=== PATIENT | female | born 2000 | race Caucasian/White ===

== ENCOUNTER 2019-06-24 20:09 | Emergency (ER) | payer MEDICAID ==
--- NOTE | 2019-06-24 21:31 | ER Document Report ---
HPI - HPI Time Seen by Provider: 06/24/19 20:37 Pain Level: 4 Notes: 19-year-old female patient presenting to the emergency department chief complaint of headache, throat pain and ear pain that started yesterday. Patient reports low-grade fever. Denies any cough or congestion. Denies any recent travel or exposure to any known COVID-19 patients. - CONSTITUTIONAL Constitutional: REPORTS: Fever, Chills - EENT EENT: REPORTS: Sore Throat, Ear Pain. DENIES: Eye problems - NEURO Neurology: REPORTS: Headache - REPRODUCTIVE Reproductive: DENIES: : Past Medical History - General Information source: Patient - Social History Smoking Status: Current Every Day Smoker Family History: Reviewed & Not Pertinent Patient has suicidal ideation: No Patient has homicidal ideation: No GI Medical History: Reports: Hx Gastroesophageal Reflux Disease Psychiatric Medical History: Reports: Hx Depression Past Surgical History: Reports: Hx Tonsillectomy Vertical Provider Document - CONSTITUTIONAL Notes: PHYSICAL EXAMINATION: GENERAL: Well-appearing, well-nourished and in no acute distress. HEAD: Atraumatic, normocephalic. EYES: Pupils equal round and reactive to light, extraocular movements intact, conjunctiva are normal. ENT: Nares patent, oropharynx slightly erythematous but without exudates. Moist mucous membranes. Bilateral TMs unremarkable NECK: Normal range of motion, supple without lymphadenopathy LUNGS: Breath sounds clear to auscultation bilaterally and equal. No wheezes rales or rhonchi. HEART: Regular rate and rhythm without murmurs ABDOMEN: Soft, nontender, nondistended abdomen. No guarding, no rebound. No masses appreciated. Female : deferred Musculoskeletal: Normal range of motion, no pitting or edema. No cyanosis. NEUROLOGICAL: Cranial nerves grossly intact. Normal speech, normal gait. Normal sensory, motor exams PSYCH: Normal mood, normal affect. SKIN: Warm, Dry, normal turgor, no rashes or lesions noted. Course - Re-evaluation Re-evalutation: Patient appears well, nontoxic, vital signs within normal limits. Work-up today has been unremarkable. No indication at this time for COVID-19 testing. Patient is in agreement with this plan. Patient will be discharged home. - Vital Signs Vital signs: Temp Pulse Resp BP Pulse Ox 98.6 F 96 15 109/61 95 06/24/19 20:24 06/24/19 20:24 06/24/19 20:24 06/24/19 20:24 06/24/19 20:24 Discharge - Discharge Clinical Impression: URI (upper respiratory infection) Qualifiers: URI type: unspecified URI Qualified Code(s): J06.9 - Acute upper respiratory infection, unspecified Condition: Stable Disposition: HOME, SELF-CARE Instructions: Upper Respiratory Illness ([facility])
[2019-06-24 21:56] VITALS: BP 105/57
== END 2019-06-24 21:56 | disposition home or self-care (01) ==
LOC: ER 20:09
DX: J06.9 Acute upper respiratory infection, unspecified (principal); R51 Headache; R50.9 Fever, unspecified; F17.200 Nicotine dependence, unspecified, uncomplicated
CPT/HCPCS: 87070; 87077; 87880; 99283

== ENCOUNTER 2019-07-10 22:08 | Inpatient (IN) | payer OTHER, MEDICAID ==
[2019-07-10 22:44] LABS: ABSOLUTE EOSINOPHILS # (AUTO) 0.1 10^3/uL (0.0-0.6); ABSOLUTE LYMPHOCYTES (AUTO) 2.1 10^3/uL (0.5-4.7); ABSOLUTE MONOCYTES (AUTO) 0.6 10^3/uL (0.1-1.4); ABSOLUTE NEUT (AUTO) 4.5 10^3/uL (1.7-8.2); BASOPHILS % (AUTO) 0.7 % (0-2); EOSINOPHILS % (AUTO) 1.4 % (0-6); HEMATOCRIT 36.9 % (36.0-47.0); HEMOGLOBIN 12.7 g/dL (12.0-15.5); LYMPHOCYTES % (AUTO) 29.2 % (13-45); MEAN CORPUSCULAR HEMOGLOBIN 30.8 pg (27.0-33.4); MEAN CORPUSCULAR HGB CONC 34.5 g/dL (32.0-36.0); MEAN CORPUSCULAR VOLUME 89 fl (80-97); MONOCYTES % (AUTO) 7.6 % (3-13); PLATELET COUNT 262 10^3/uL (150-450); RED BLOOD COUNT 4.13 10^6/uL (3.72-5.28); RED CELL DISTRIBUTION WIDTH 13.6 % (11.5-14.0); SEGMENTED NEUTROPHILS % (AUTO) 61.1 % (42-78); TOTAL CELLS COUNTED % (AUTO) 100 %; WHITE BLOOD COUNT 7.3 10^3/uL (4.0-10.5)
[2019-07-10 22:50] LABS: APPEARANCE,URINE CLEAR; BILIRUBIN,URINE NEGATIVE (NEGATIVE); COLOR,URINE COLORLESS; GLUCOSE, URINE NEGATIVE (NEGATIVE); KETONES,URINE NEGATIVE (NEGATIVE); LEUKOCYTE ESTERASE,URINE NEGATIVE (NEGATIVE); NITRITE,URINE NEGATIVE (NEGATIVE); PROTEIN,URINE NEGATIVE (NEGATIVE); URINE SPECIFIC GRAVITY 1.001; UROBILINOGEN,URINE NEGATIVE mg/dL (<2.0)
[2019-07-10 23:01] LABS: ALBUMIN 4.3 g/dL (3.5-5.0); ALKALINE PHOSPHATASE 82 U/L (38-126); ANION GAP 7 (5-19); ASPARTATE AMINO TRANSFERASE 24 U/L (14-36); BILIRUBIN,TOTAL 0.2 mg/dL (0.2-1.3); BLOOD UREA NITROGEN 10 mg/dL (7-20); CALCIUM 9.1 mg/dL (8.4-10.2); CARBON DIOXIDE 25 mmol/L (22-30); CHLORIDE 108 mmol/L (98-107); GLUCOSE 80 mg/dL (75-110); POTASSIUM 3.9 mmol/L (3.6-5.0); TOTAL PROTEIN 7.8 g/dL (6.3-8.2)
[2019-07-10 23:02] LABS: ACETAMINOPHEN < 10 ug/mL (10-30); ALCOHOL < 10 mg/dL (NONE DETECTED)
--- NOTE | 2019-07-10 23:05 | ER Document Report ---
ED General - General Chief Complaint: Possible Overdose Stated Complaint: POSSIBLE OVERDOSE Time Seen by Provider: 07/10/19 22:21 - HPI Notes: Patient is a 19-year-old female who presents to the emergency department for evaluation after an overdose. The patient admits to taking 3-1/2 g of Tylenol as well as 3325 mg tablets of aspirin at 2044. She states this was an attempt to kill herself. She denies any history of suicide attempt. She states she does have a history of cutting in the past. She denies any homicidal ideation. No visual or auditory hallucination. She has history of depression, has been on Effexor for years. She states she used to see a therapist, but just recently moved to the area from [place] and does not have one. Patient states that this was all prompted by arguments with her girlfriend. She states she then got to thinking about her ex-boyfriend, with whom she would like to reconcile. All of this caused her to take these medications. Otherwise she denies any other acute complaints or concerns. - Related Data Allergies/Adverse Reactions: No Known Allergies Allergy (Unverified 07/10/19 23:49) Home Medications: Omeprazole, Effexor Past Medical History - General Information source: Patient - Social History Smoking Status: Current Some Day Smoker Drug Abuse: None Family History: Reviewed & Not Pertinent GI Medical History: Reports: Hx Gastroesophageal Reflux Disease Psychiatric Medical History: Reports: Hx Depression Past Surgical History: Reports: Hx Tonsillectomy Review of Systems - Review of Systems Neurological/Psychological: See HPI -: Yes All other systems reviewed and negative Physical Exam - Vital signs Vitals: Resp Pulse Ox 26 H 100 07/10/19 22:13 07/10/19 22:13 - Notes Notes: Vital signs reviewed, please refer to chart. Head is normocephalic, atraumatic. Pupils equal round, reactive to light. Neck is supple without meningismus. Heart is regular rate and rhythm. Lungs are clear to auscultation bilaterally. Abdomen is soft, nontender, normoactive bowel sounds throughout. Extremities without cyanosis, clubbing. Posterior calves are nontender. Peripheral pulses are equal. Skin is warm and dry. Patient is awake, alert, neurological exam is nonfocal. Patient is cooperative with examiner, calm and pleasant, normal affect. Course - Re-evaluation Re-evalutation: 07/10/19 23:05 Patient presents to the emergency department for evaluation. Laboratory investigations were obtained. Repeat salicylate and acetaminophen levels for 4 hours postingestion will be ordered. Awaiting labs. At this time patient is on the monitor, she is stable at this time. We will continue to follow. 07/11/19 01:37 Patient's second salicylate level came back elevated. I went back and ree valuated the patient. She is stable. She denies any abdominal pain, no nausea, no vomiting, no diarrhea. I did contact poison control. They recommend repeating the salicylate level another 2 to 3 hours. They state they would consider treatment once level reaches 40. Again patient is stable at this time, we will continue to monitor. 07/11/19 03:59 Patient's salicylate level continues to rise. She remains asymptomatic. I spoke again with poison control, who will fax along guidelines in regards to treatment, but do not recommend any further treatment at this time. Repeat salicylate and acetaminophen levels ordered. 07/11/19 05:08 At 415, patient's heart rate went up. She states that she started to feel "hot all over." She started to feel nauseated. IV fluids and Zofran administered. At this point I am awaiting repeat salicylate and acetaminophen levels. 07/11/19 06:[address] Betts, he will accept the patient for further care. - Vital Signs Vital signs: Temp Pulse Resp BP Pulse Ox 98.4 F 24 H 115/62 100 07/11/19 04:01 07/11/19 04:01 07/11/19 04:01 07/11/19 04:01 - Laboratory Result Diagrams: 07/10/19 22:36 07/11/19 04:33 Laboratory results interpreted by me: 07/10/19 07/11/19 07/11/19 22:36 00:37 02:52 Chloride 108 H Carbon Dioxide Salicylates 24.1 H* 36.5 H* Acetaminophen < 10 L 07/11/19 07/11/19 04:33 04:33 Chloride 109 H Carbon Dioxide 21 L Salicylates 42.7 H* Acetaminophen - EKG Interpretation by Me Additional EKG results interpreted by me: 07/11/19 04:00 Sinus mechanism with rate of 84 bpm. Normal axis and intervals. No acute ST changes concerning for ischemia or infarction. Discharge - Discharge Clinical Impression: Salicylate overdose Qualifiers: Encounter type: initial encounter Injury intent: intentional self-harm Qualified Code(s): T39.092A - Poisoning by salicylates, intentional self-harm, initial encounter Acetaminophen overdose Qualifiers: Encounter type: initial encounter Injury intent: intentional self-harm Qualified Code(s): T39.1X2A - Poisoning by 4-Aminophenol derivatives, intentional self-harm, initial encounter Condition: Stable Disposition: ADMITTED OBSERVATION Admitting Provider: Alpesh (Hospitalist) Unit Admitted: [facility]
[2019-07-10 23:07] LABS: URINE AMPHETAMINES SCREEN NEGATIVE; URINE BARBITURATES SCREEN NEGATIVE; URINE BENZODIAZEPINES SCREEN NEGATIVE; URINE COCAINE SCREEN NEGATIVE; URINE MARIJUANA (THC) SCREEN NEGATIVE; URINE METHADONE SCREEN NEGATIVE; URINE PHENCYCLIDINE SCREEN NEGATIVE
[2019-07-11 01:16] LABS: SALICYLATE 24.1 mg/dL (2.0-20.0)
[2019-07-11 03:37] LABS: SALICYLATE 36.5 mg/dL (2.0-20.0)
[2019-07-11] MEDS ORDERED: NORMAL SALINE 1000 ML 1,000 ML IV ONE (04:19)
[2019-07-11] MEDS ORDERED: ONDANSETRON HCL INJ/PF 4 MG/2 ML SDV IV ONE (04:19)
[2019-07-11 05:25] LABS: ANION GAP 10 (5-19); BLOOD UREA NITROGEN 11 mg/dL (7-20); CALCIUM 9.2 mg/dL (8.4-10.2); CARBON DIOXIDE 21 mmol/L (22-30); CHLORIDE 109 mmol/L (98-107); GLUCOSE 95 mg/dL (75-110); POTASSIUM 3.9 mmol/L (3.6-5.0)
[2019-07-11 05:34] LABS: SALICYLATE 42.7 mg/dL (2.0-20.0)
[2019-07-11] MEDS ORDERED: SODIUM BICARBONATE 8.4% INJ 50 MEQ/50 ML DISP.SYRIN IV ONE (05:35)
[2019-07-11] MEDS ORDERED: DEXTROSE 5%-WATER 1000 ML 1,000 ML with SODIUM BICARBONATE 150 MEQ IV PRN ×2 (05:39)
[2019-07-11] MEDS ORDERED: SODIUM BICARBONATE 8.4% INJ 50 MEQ/50 ML DISP.SYRIN ONE (05:48)
[2019-07-11] MEDS: DEXTROSE 5%-WATER 1000 ML 1,000 ML with SODIUM BICARBONATE 50 MEQ IV PRN ×4 (11:28→18:41)
[2019-07-11] MEDS ORDERED: ONDANSETRON 4 MG TAB.RAPDIS PO PRN (11:52)
[2019-07-11] MEDS ORDERED: ONDANSETRON HCL INJ/PF 4 MG/2 ML SDV IV PRN (11:52)
[2019-07-11] MEDS ORDERED: ALBUTEROL SULFATE 0.083% NEB 2.5 MG/3 ML AMPUL NEB PRN (11:52)
--- NOTE | 2019-07-11 12:56 | PDOC H&P ---
History of Present Illness Admission Date/PCP: 07/11/19 06:23 History of Present Illness: SHANEL JIMENEZ is a 19 year old female with past medical history significant for mild intermittent asthma, depression, GERD, intermittent hypoglycemia who presents to ED after admitted suicide attempt by taking approximately 30 tablets of regular strength aspirin and up to 7 tablets of extra strength Tylenol. Initial Tylenol level was normal, initial aspirin level was notably high and repeat was even higher. Patient denies any chest or abdominal pain or respiratory distress. She is admitted for psychiatry consult and serial aspirin levels. Discussed with patient that she may potentially need dialysis if the aspirin level reaches greater than 100 or she develops severe renal failure. P atient states she is no longer suicidal at this time. She has a sitter at bedside and she will have suicide precautions. Past Medical History Cardiac Medical History: Reports: None Pulmonary Medical History: Reports: Asthma GI Medical History: Reports: Gastroesophageal Reflux Disease Psychiatric Medical History: Reports: Depression, Other - Suicide Attempt via intentional drug overdose Past Surgical History Past Surgical History: Reports: Tonsillectomy Social History Information Source: Patient, Emergency Med Personnel, [facility] Records Lives with: Spouse/Significant other Smoking Status: Never Smoker Electronic Cigarette use?: Yes Frequency of Alcohol Use: Occasional Hx Recreational Drug Use: No Drugs: None Hx Prescription Drug Abuse: Yes - Advance Directive Resuscitation Status: Full Code Surrogate healthcare decision maker:: girlfriend Family History Family History: None, Reviewed & Not Pertinent Parental Family History Reviewed: Yes Children Family History Reviewed: Yes Sibling(s) Family History Reviewed.: Yes Medication/Allergy Home Medications: Omeprazole 20 mg pe PO DAILY 07/11/19 Venlafaxine HCl ER [Effexor Xr 75 mg Cap.sr] 75 mg PO DAILY 07/11/19 Allergies/Adverse Reactions: No Known Allergies Allergy (Unverified 07/10/19 23:49) Review of Systems All systems: reviewed and no additional remarkable complaints except as stated - No specific complaints at this time. See HPI otherwise negative Physical Exam Vital Signs: Temp Pulse Resp BP Pulse Ox 98.3 F 109 H 18 129/67 H 99 07/11/19 08:46 07/11/19 08:46 07/11/19 08:46 07/11/19 08:46 07/11/19 08:46 Intake & Output 07/10/19 07/11/19 07/12/19 06:59 06:59 06:59 Intake Total 1000 Balance 1000 Weight 47.2 kg 45.4 kg General appearance: PRESENT: no acute distress, well-developed, well-nourished Head exam: PRESENT: atraumatic, normocephalic Eye exam: PRESENT: conjunctiva pink Mouth exam: PRESENT: moist Respiratory exam: PRESENT: clear to auscultation dhiraj. ABSENT: rales, rhonchi, wheezes Cardiovascular exam: PRESENT: RRR. ABSENT: diastolic murmur, rubs, systolic murmur GI/Abdominal exam: PRESENT: normal bowel sounds, soft. ABSENT: distended, guarding, mass, organolmegaly, rebound, tenderness Rectal exam: PRESENT: deferred Musculoskeletal exam: PRESENT: ambulatory Neurological exam: PRESENT: alert, awake, oriented to person, oriented to place, oriented to time, oriented to situation Psychiatric exam: PRESENT: appropriate affect, normal mood Skin exam: PRESENT: dry, intact, warm Results Laboratory Results: 07/10/19 22:36 07/11/19 04:33 07/10/19 07/10/19 07/10/19 22:36 22:36 22:36 WBC 7.3 RBC 4.13 Hgb 12.7 Hct 36.9 MCV 89 MCH 30.8 MCHC 34.5 RDW 13.6 Plt Count 262 Seg Neutrophils % 61.1 Sodium 140.1 Potassium 3.9 Chloride 108 H Carbon Dioxide 25 Anion Gap 7 BUN 10 Creatinine 0.54 Est GFR ( Amer) > 60 Glucose 80 Calcium 9.1 Magnesium Total Bilirubin 0.2 AST 24 Alkaline Phosphatase 82 Total Protein 7.8 Albumin 4.3 Serum HCG, Qual NEGATIVE Urine Color Urine Appearance Urine pH Ur Specific Cord Urine Protein Urine Glucose (UA) Urine Ketones Urine Blood Urine Nitrite Ur Leukocyte Esterase Urine WBC (Auto) 07/10/19 07/11/19 22:36 04:33 WBC RBC Hgb Hct MCV MCH MCHC RDW Plt Count Seg Neutrophils % Sodium 139.6 Potassium 3.9 Chloride 109 H Carbon Dioxide 21 L Anion Gap 10 BUN 11 Creatinine 0.57 Est GFR ( Amer) > 60 Glucose 95 Calcium 9.2 Magnesium 2.3 Total Bilirubin AST Alkaline Phosphatase Total Protein Albumin Serum HCG, Qual Urine Color COLORLESS Urine Appearance CLEAR Urine pH 6.0 Ur Specific Cord 1.001 Urine Protein NEGATIVE Urine Glucose (UA) NEGATIVE Urine Ketones NEGATIVE Urine Blood NEGATIVE Urine Nitrite NEGATIVE Ur Leukocyte Esterase NEGATIVE Urine WBC (Auto) 0 Assessment and Plan - Diagnosis (1) Suicide attempt Is this a current diagnosis for this admission?: Yes Plan: Due to acute on chronic depression Took approximately 30 regular strength aspirins and 7 extra strength Tylenols Started on IV D5/bicarbonate infusion Psychiatry consulted Takes venlafaxine at home, denies running out or missing doses; recently moved here and does not follow with psychiatry yet (2) Salicylate overdose Qualifiers: Encounter type: initial encounter Injury intent: intentional self-harm Qualified Code(s): T39.092A - Poisoning by salicylates, intentional self-harm, initial encounter Is this a current diagnosis for this admission?: Yes Plan: Trend ASA every 2 hours until we have 2 descending values under 40 If aspirin level rises above 100 or creatinine acutely rises, will need nephrology consult for hemodialysis evaluation IV D5/bicarb drip started on admission (3) Acetaminophen overdose Qualifiers: Encounter type: initial encounter Injury intent: intentional self-harm Qualified Code(s): T39.1X2A - Poisoning by 4-Aminophenol derivatives, intentional self-harm, initial encounter Is this a current diagnosis for this admission?: Yes Plan: Tylenol level normal on admission -took approx 3-3.5g per patient, reportedly took extra strength Tylenol which is 500 mg/tab. (4) Asthma, mild intermittent Is this a current diagnosis for this admission?: Yes Plan: Not in exacerbation Albuterol available as needed (5) Depression Is this a current diagnosis for this admission?: Yes Plan: Recurrent and severe Takes venlafaxine at home Psychiatry consulted as above (6) GERD (gastroesophageal reflux disease) Is this a current diagnosis for this admission?: Yes Plan: Restart home omeprazole - Time Time Spent with patient: 35 or more minutes Medications reviewed and adjusted accordingly: Yes Anticipated discharge: Home Within: within 72 hours - Inpatient Certification Based on my medical assessment, after consideration of the patient's comorbidities, presenting symptoms, or acuity I expect that the services needed warrant INPATIENT care.: Yes I certify that my determination is in accordance with my understanding of Medicare's requirements for reasonable and necessary INPATIENT services [42 CFR 412.3e].: Yes Medical Necessity: Significant Comorbidiites Make Outpatient Treatment Too Risky, Need Close Monitoring Due to Risk of Patient Decompensation, Need For IV Fluids, Risk of Complication if Not Cared For in Hospital, Risk of Diagnosis Which Will Require Inpatient Eval/Care/Monitoring
--- NOTE | 2019-07-11 12:57 | ADVANCED CARE ---
- Diagnosis (1) Suicide attempt Diagnosis Current: Yes (2) Salicylate overdose Diagnosis Current: Yes (3) Acetaminophen overdose Diagnosis Current: Yes (4) Asthma, mild intermittent Diagnosis Current: Yes (5) Depression Diagnosis Current: Yes (6) GERD (gastroesophageal reflux disease) Diagnosis Current: Yes Attendance: Patient Resuscitation Status: Full Code Discussion: All aspects of code discussed including cardioversion/chest compressio ns/intubation and patient states she wants to be full code. She designates her girlfriend Margaret Pintob as her M POA. Time Spent: 17 minutes
[2019-07-11] MEDS: HEPARIN SOD (PORCINE) 5,000 UNIT/ML 1 ML VIAL SUBCUT SCH ×2 (14:50→21:01)
--- NOTE | 2019-07-11 20:57 | PSYCHOLOGICAL NOTE ---
Psych Note - Psych Note Date seen by psych provider: 07/11/19 Time seen by psych provider: 19:55 Psych Note: Patient is a 19-year-old female who presented to ED via EMS following overdose on Tylenol and aspirin. Patient was subsequently admitted to hospital. Patient states she "hit 1 of my really low depressive states." Patient reported trigger was she reached out to her ex-boyfriend in an attempt to reconnect however was told by ex-boyfriend he only wished to be friends. Patient reports "having issues" with girlfriend that prompted her to want to reach out to reconnect with her ex-boyfriend. Patient reports this is her first "actual" suicide attempt. Patient reports a history of NSSI. Patient described overdose as an impulsive behavior. Patient reports she immediately told her girlfriend what had happened. Patient reports "I felt stupid and was not really thinking." Patient reports mental health diagnoses of depression, anxiety, and PTSD. Patient is not currently linked with a mental health provider. Patient described herself as a procrastinator and stated she has been "lazy about it." Patient reports she was prescribed Effexor 75MG, daily last year. Patient reports compliance with medication. Patient expressed a belief that the medic ation "works until it does not." When asked to elaborate about medication not working patient describes the medication "gives me a boost in the morning" and when it wears off she reports not getting "the boost." Patient denies a history of substance abuse. Patient reports he lives with her girlfriend, who also provides assistance with meeting her basic needs. Patient reports that she would move back to [place] if the relationship does not work out with her current girlfriend. Clinician spoke with patient's girlfriend, Margaret Quinn ([phone]) who reports this event was out of character for patient. Girlfriend states patient contacted her and told her "I made a bad decision" and informed her of the overdose. Girlfriend states she was shocked. Girlfriend expressed a belief that overdose was a "cry for help." Girlfriend is agreeable to being part of patient's plan of care at discharge (possible for medication management and administration, facilitation of follow-up with a mental health provider, observing for signs of increased emotional distress, and removing access to items that can be used for suicidal purposes). Girlfriend states that he has a safe at home which she only has the combination ,and she has already safe'd the home. Girlfriend verbalized no concerns with discharge. Patient was alert and oriented to person, place, circumstance, and situation. Mood was cooperative and affect was mood congruent and with full expression. Patient denied current suicidal / homicidal ideation. She denied current auditory /visual hallucinations and there was no evidence of delusional thought content. Thought processes were linear, rational, and organized. Conversational speech was within normal limits for rate, tone, and prosody. Eye contact was well maintained. Intellectual abilities were estimated within the average range. Attention and concentration was good, and insight, judgment, and impulse control was fair. Medication recommendation by consulting psychiatrist: 1. Add Effexor 37.5MG, twice a day 2. Add Buspar 5MG, twice a day Diagnosis: 1. Depression Therapeutic Intervention: Psycho-education and the benefit of therapy to address depressive states as to accurately interpret her environment, thoughts, and emotions. Discussed the importance of utilizing healthy coping skills. Discussed the importance of medication compliance. Impression / Plan: Recommend rescind of 24 hour petition for evaluation and patient cleared from acute psychiatric services. 1. Medication recommendations have been provided. 2. Patient was provided with psychoeducation regarding the importance of medication compliance, healthy coping skills to manage depressive states, and the importance of therapy. 3. Patient was provided and explained in detail the outpatient mental health resource list. Resource list was placed in patient's chart for safekeeping until discharge. 4. Girlfriend was contacted to discuss plan of care at discharge. Dr. Green was consulted on the care and management of this patient; attending physician is in agreement with recommendations and disposition. Per attending physician's request, rescind was placed in patient's physical chart for signature.
[2019-07-12] MEDS: DEXTROSE 5%-WATER 1000 ML 1,000 ML with SODIUM BICARBONATE 50 MEQ IV PRN ×2 (01:49)
[2019-07-12 05:38] LABS: ALBUMIN 3.3 g/dL (3.5-5.0); ALKALINE PHOSPHATASE 70 U/L (38-126); ANION GAP 5 (5-19); ASPARTATE AMINO TRANSFERASE 22 U/L (14-36); BILIRUBIN,TOTAL 0.2 mg/dL (0.2-1.3); BLOOD UREA NITROGEN 8 mg/dL (7-20); CALCIUM 8.6 mg/dL (8.4-10.2); CARBON DIOXIDE 25 mmol/L (22-30); CHLORIDE 107 mmol/L (98-107); GLUCOSE 96 mg/dL (75-110); POTASSIUM 3.4 mmol/L (3.6-5.0); TOTAL PROTEIN 5.9 g/dL (6.3-8.2)
[2019-07-12] MEDS: HEPARIN SOD (PORCINE) 5,000 UNIT/ML 1 ML VIAL SUBCUT SCH (06:02)
--- NOTE | 2019-07-12 07:27 | EKG REPORT ---
SEVERITY:- NORMAL ECG - SINUS RHYTHM : Confirmed by: Leila Rogers 12-Jul-2019 07:26:45
[2019-07-12] MEDS ORDERED: VENLAFAXINE HCL 75 MG CAP.SR.24H PO SCH (10:00)
[2019-07-12] MEDS ORDERED: OMEPRAZOLE 20 MG PO SCH (10:00)
[2019-07-12] MEDS ORDERED: PANTOPRAZOLE SODIUM 20 MG TABLET.DR PO SCH (10:00)
[2019-07-12 11:13] VITALS: BP 129/67
--- NOTE | 2019-07-12 12:45 | PDOC DISCHARGE SUMMARY ---
Impression - Admit/DC Date/PCP Admission Date/Primary Care Provider: 07/11/19 06:23 Discharge Date: 07/12/19 - Discharge Diagnosis (1) Suicide attempt Is this a current diagnosis for this admission?: Yes (2) Salicylate overdose Is this a current diagnosis for this admission?: Yes (3) Acetaminophen overdose Is this a current diagnosis for this admission?: Yes (4) Asthma, mild intermittent Is this a current diagnosis for this admission?: Yes (5) Depression Is this a current diagnosis for this admission?: Yes (6) GERD (gastroesophageal reflux disease) Is this a current diagnosis for this admission?: Yes - Additional Information Resuscitation Status: Full Code Discharge Diet: As Tolerated Discharge Activity: Activity As Tolerated Referrals: [facility], [place] [Other] (Office stated that patient would have to call and make own appointment.) Prescriptions: Venlafaxine HCl ER [Effexor Xr 75 mg Cap.sr] 75 mg PO DAILY #30 tab Omeprazole 20 mg pe PO DAILY #30 tab Home Medications: Omeprazole 20 mg pe PO DAILY #30 tab 07/12/19 Venlafaxine HCl ER [Effexor Xr 75 mg Cap.sr] 75 mg PO DAILY #30 tab 07/12/19 History of Present Illiness History of Present Illness: SHANEL JIMENEZ is a 19 year old female with past medical history significant for mild intermittent asthma, depression, GERD, intermittent hypoglycemia who presents to ED after admitted suicide attempt by taking approximately 30 tablets of regular strength aspirin and up to 7 tablets of extra strength Tylenol. Initial Tylenol level was normal, initial aspirin level was notably high and repeat was even higher. Patient denies any chest or abdominal pain or respiratory distress. She is admitted for psychiatry consult and serial aspirin levels. Discussed with patient that she may potentially need dialysis if the aspirin level reaches greater than 100 or she develops severe renal failure. Patient states she is no longer suicidal at this time. She has a sitter at bedside and she will have suicide precautions. Hospital Course Hospital Course: Patient moved for intentional overdose of aspirin and Tylenol, monitored with every 2 hour aspirin level, eventually had consistently dropping levels less than 40 and this monitoring was discontinued. Psychiatry saw patient and cleared her for discharge stating she is no longer suicidal. She will need close follow-up with PCP and psychiatry/counseling. Refilled her Effexor as she requested. (1) Suicide attemptresolved Is this a current diagnosis for this admission?: Yes Plan: Due to acute on chronic depression Took approximately 30 regular strength aspirins and 7 extra strength Tylenols Started on IV D5/bicarbonate infusion Psychiatry consulted Takes venlafaxine at home, denies running out or missing doses; recently moved here and does not follow with psychiatry yet (2) Salicylate overdoseresolved Qualifiers: Encounter type: initial encounter Injury intent: intentional self-harm Qualified Code(s): T39.092A - Poisoning by salicylates, intentional self-harm, initial encounter Is this a current diagnosis for this admission?: Yes Plan: Trend ASA every 2 hours until we have 2 descending values under 40 If aspirin level rises above 100 or creatinine acutely rises, will need nephrology consult for hemodialysis evaluation IV D5/bicarb drip started on admission (3) Acetaminophen overdoseresolved Qualifiers: Encounter type: initial encounter Injury intent: intentional self-harm Qualified Code(s): T39.1X2A - Poisoning by 4-Aminophenol derivatives, intentional self-harm, initial encounter Is this a current diagnosis for this admission?: Yes Plan: Tylenol level normal on admission -took approx 3-3.5g per patient, reportedly took extra strength Tylenol which is 500 mg/tab. (4) Asthma, mild intermittent Is this a current diagnosis for this admission?: Yes Plan: Not in exacerbation Albuterol available as needed (5) Depression Is this a current diagnosis for this admission?: Yes Plan: Recurrent and severe Takes venlafaxine at home Psychiatry consulted as above (6) GERD (gastroesophageal reflux disease) Is this a current diagnosis for this admission?: Yes Plan: Restart home omeprazole Physical Exam Vital Signs: Temp Pulse Resp BP Pulse Ox 98.9 F 114 H 15 129/67 H 100 07/12/19 11:12 07/12/19 11:12 07/12/19 11:12 07/12/19 11:12 07/12/19 11:12 Intake & Output 07/11/19 07/12/19 07/13/19 06:59 06:59 06:59 Intake Total 3220 1000 Balance 3220 1000 Weight 47.2 kg 45.6 kg General appearance: PRESENT: no acute distress, well-developed, well-nourished Head exam: PRESENT: atraumatic, normocephalic Eye exam: PRESENT: conjunctiva pink Mouth exam: PRESENT: moist Respiratory exam: PRESENT: clear to auscultation dhiraj. ABSENT: rales, rhonchi, wheezes Cardiovascular exam: PRESENT: RRR. ABSENT: diastolic murmur, rubs, systolic murmur GI/Abdominal exam: PRESENT: normal bowel sounds, soft. ABSENT: distended, guarding, mass, organolmegaly, rebound, tenderness Musculoskeletal exam: PRESENT: ambulatory Neurological exam: PRESENT: alert, awake, oriented to person, oriented to place, oriented to time, oriented to situation Psychiatric exam: PRESENT: appropriate affect, normal mood. ABSENT: homicidal ideation, suicidal ideation Skin exam: PRESENT: dry, intact, warm Results Laboratory Results: WBC 7.3 10^3/uL (4.0-10.5) 07/10/19 22:36 RBC 4.13 10^6/uL (3.72-5.28) 07/10/19 22:36 Hgb 12.7 g/dL (12.0-15.5) 07/10/19 22:36 Hct 36.9 % (36.0-47.0) 07/10/19 22:36 MCV 89 fl (80-97) 07/10/19 22:36 MCH 30.8 pg (27.0-33.4) 07/10/19 22:36 MCHC 34.5 g/dL (32.0-36.0) 07/10/19 22:36 RDW 13.6 % (11.5-14.0) 07/10/19 22:36 Plt Count 262 10^3/uL (150-450) 07/10/19 22:36 Lymph % (Auto) 29.2 % (13-45) 07/10/19 22:36 [place] % (Auto) 7.6 % (3-13) 07/10/19 22:36 Eos % (Auto) 1.4 % (0-6) 07/10/19 22:36 Baso % (Auto) 0.7 % (0-2) 07/10/19 22:36 Absolute Neuts (auto) 4.5 10^3/uL (1.7-8.2) 07/10/19 22:36 Absolute Lymphs (auto) 2.1 10^3/uL (0.5-4.7) 07/10/19 22:36 Absolute Monos (auto) 0.6 10^3/uL (0.1-1.4) 07/10/19 22:36 Absolute Eos (auto) 0.1 10^3/uL (0.0-0.6) 07/10/19 22:36 Absolute Basos (auto) 0.0 10^3/uL (0.0-0.2) 07/10/19 22:36 Seg Neutrophils % 61.1 % (42-78) 07/10/19 22:36 Sodium 137.2 mmol/L (137-145) 07/12/19 04:36 Potassium 3.4 mmol/L (3.6-5.0) L 07/12/19 04:36 Chloride 107 mmol/L (98-107) 07/12/19 04:36 Carbon Dioxide 25 mmol/L (22-30) 07/12/19 04:36 Anion Gap 5 (5-19) 07/12/19 04:36 BUN 8 mg/dL (7-20) 07/12/19 04:36 Creatinine 0.69 mg/dL (0.52-1.25) 07/12/19 04:36 Est GFR ( Amer) > 60 (>60) 07/12/19 04:36 Est GFR (MDRD) Non-Af > 60 (>60) 07/12/19 04:36 Glucose 96 mg/dL (75-110) 07/12/19 04:36 Calcium 8.6 mg/dL (8.4-10.2) 07/12/19 04:36 Magnesium 1.9 mg/dL (1.6-2.3) 07/12/19 04:36 Total Bilirubin 0.2 mg/dL (0.2-1.3) 07/12/19 04:36 Direct Bilirubin 0.0 mg/dL (0.0-0.4) 07/12/19 04:36 Neonat Total Bilirubin Not Reportable 07/12/19 04:36 Neonat Direct Bilirubin Not Reportable 07/12/19 04:36 Neonat Indirect Bili Not Reportable 07/12/19 04:36 AST 22 U/L (14-36) 07/12/19 04:36 ALT 12 U/L (<35) 07/12/19 04:36 Alkaline Phosphatase 70 U/L (38-126) 07/12/19 04:36 Total Protein 5.9 g/dL (6.3-8.2) L 07/12/19 04:36 Albumin 3.3 g/dL (3.5-5.0) L 07/12/19 04:36 Serum HCG, Qual NEGATIVE (NEGATIVE) 07/10/19 22:36 Urine Color COLORLESS 07/10/19 22:36 Urine Appearance CLEAR 07/10/19 22:36 Urine pH 6.0 (5.0-9.0) 07/10/19 22:36 Ur Specific [place] 1.001 07/10/19 22:36 Urine Protein NEGATIVE mg/dL (NEGATIVE) 07/10/19 22:36 Urine Glucose (UA) NEGATIVE mg/dL (NEGATIVE) 07/10/19 22:36 Urine Ketones NEGATIVE mg/dL (NEGATIVE) 07/10/19 22:36 Urine Blood NEGATIVE (NEGATIVE) 07/10/19 22:36 Urine Nitrite NEGATIVE (NEGATIVE) 07/10/19 22:36 Urine Bilirubin NEGATIVE (NEGATIVE) 07/10/19 22:36 Urine Urobilinogen NEGATIVE mg/dL (<2.0) 07/10/19 22:36 Ur Leukocyte Esterase NEGATIVE (NEGATIVE) 07/10/19 22:36 Urine WBC (Auto) 0 /HPF 07/10/19 22:36 Squamous Epi Cells Auto 1 /HPF 07/10/19 22:36 Urine Ascorbic Acid NEGATIVE (NEGATIVE) 07/10/19 22:36 Salicylates 23.0 mg/dL (2.0-20.0) H* 07/11/19 18:00 Urine Opiates Screen NEGATIVE 07/10/19 22:36 Urine Methadone Screen NEGATIVE 07/10/19 22:36 Acetaminophen 27 ug/mL (10-30) 07/11/19 04:33 Ur Barbiturates Screen NEGATIVE 07/10/19 22:36 Ur Phencyclidine Scrn NEGATIVE 07/10/19 22:36 Ur Amphetamines Screen NEGATIVE 07/10/19 22:36 U Benzodiazepines Scrn NEGATIVE 07/10/19 22:36 Urine Cocaine Screen NEGATIVE 07/10/19 22:36 U Marijuana (THC) Screen NEGATIVE 07/10/19 22:36 Serum Alcohol < 10 mg/dL (NONE DETECTED) 07/10/19 22:36 Plan Plan of Treatment: Follow-up with PCP Follow-up with psychiatry Time Spent: Greater than 30 Minutes Stroke Is this a Stroke Patient?: No Acute Heart Failure - Is this a Heart Failure Patient?: No
== END 2019-07-12 12:56 | disposition home or self-care (01) | DRG 918 ==
LOC: ER 22:08 → OBSVTOIN 07-11 06:23 → EH 07-11 06:23 → 3S 07-11 08:34
PROVIDERS: ADMIT Emergency Medicine; ATTEND Internal Medicine
DX: T39.092A Poisoning by salicylates, intentional self-harm, initial encounter (principal); T39.1X2A Poisoning by 4-Aminophenol derivatives, intentional self-harm, initial encounter; F32.9 Major depressive disorder, single episode, unspecified; F17.200 Nicotine dependence, unspecified, uncomplicated; J45.20 Mild intermittent asthma, uncomplicated; K21.9 Gastro-esophageal reflux disease without esophagitis; Z79.899 Other long term (current) drug therapy; Y92.098 Other place in other non-institutional residence as the place of occurrence of the external cause
CPT/HCPCS: 36415; 80048; 80053; 80307; 81001; 83735; 84703; 85025; 93005; 93010; 96361; 96365; 96366; 96375; 96376; 99285; J2405; J3490; J7030; J7060

== ENCOUNTER 2020-03-17 12:39 | Emergency (ER) | payer MEDICAID, OTHER ==
--- NOTE | 2020-03-17 13:38 | ER Document Report ---
ED Medical Screen (RME) - General Chief Complaint: Vag Bleeding, +preg <12wks Stated Complaint: VAGINAL SPOTTING Time Seen by Provider: 03/17/20 13:35 Mode of Arrival: Ambulatory Information source: Patient Notes: HPI; 19-year-old female approximately 10 weeks 1 presents to the emergency room complaining of intermittent spotting for the past 2 weeks. Denies any pain. States she had a normal ultrasound at 7 weeks at [place] resource has not had any other OB care. PE: Alert and oriented x3. Lungs: Clear to auscultation without rales, rhonchi, wheezes. Heart: Regular rate rhythm without murmurs, rubs, gallops. I have greeted and performed a rapid initial assessment of this patient. A comprehensive ED assessment and evaluation of the patient, analysis of test results and completion of the medical decision making process will be conducted by additional ED providers. I have specifically instructed the patient or family members with the patient to immediately return to any nursing staff should anything change in the patient's condition or with their chief complaint. TRAVEL OUTSIDE OF THE [place] IN LAST 30 DAYS: No - Related Data Allergies/Adverse Reactions: No Known Allergies Allergy (Unverified 07/10/19 23:49) Past Medical History Pulmonary Medical History: Reports: Hx Asthma GI Medical History: Reports: Hx Gastroesophageal Reflux Disease Psychiatric Medical History: Reports: Hx Depression Past Surgical History: Reports: Hx Tonsillectomy Physical Exam - Vital signs Vitals: Temp Pulse Resp BP Pulse Ox 98.1 F 89 16 113/52 L 100 03/17/20 12:41 03/17/20 12:41 03/17/20 12:41 03/17/20 12:41 03/17/20 12:41 Course - Vital Signs Vital signs: Temp Pulse Resp BP Pulse Ox 98.1 F 89 16 113/52 L 100 03/17/20 12:41 03/17/20 12:41 03/17/20 12:41 03/17/20 12:41 03/17/20 12:41
[2020-03-17 14:19] LABS: ABSOLUTE EOSINOPHILS # (AUTO) 0.1 10^3/uL (0.0-0.6); ABSOLUTE LYMPHOCYTES (AUTO) 2.1 10^3/uL (0.5-4.7); ABSOLUTE MONOCYTES (AUTO) 0.5 10^3/uL (0.1-1.4); BASOPHILS % (AUTO) 0.4 % (0-2); HEMATOCRIT 34.5 % (36.0-47.0); HEMOGLOBIN 12.2 g/dL (12.0-15.5); LYMPHOCYTES % (AUTO) 27.4 % (13-45); MEAN CORPUSCULAR HGB CONC 35.4 g/dL (32.0-36.0); MEAN CORPUSCULAR VOLUME 90 fl (80-97); MONOCYTES % (AUTO) 6.6 % (3-13); PLATELET COUNT 194 10^3/uL (150-450); RED BLOOD COUNT 3.82 10^6/uL (3.72-5.28); RED CELL DISTRIBUTION WIDTH 12.9 % (11.5-14.0); SEGMENTED NEUTROPHILS % (AUTO) 64.6 % (42-78); TOTAL CELLS COUNTED % (AUTO) 100 %; WHITE BLOOD COUNT 7.8 10^3/uL (4.0-10.5)
[2020-03-17 14:23] LABS: APPEARANCE,URINE SLIGHTLY-CLOUDY; BILIRUBIN,URINE NEGATIVE (NEGATIVE); COLOR,URINE YELLOW; GLUCOSE, URINE NEGATIVE (NEGATIVE); KETONES,URINE NEGATIVE (NEGATIVE); LEUKOCYTE ESTERASE,URINE NEGATIVE (NEGATIVE); NITRITE,URINE NEGATIVE (NEGATIVE); PROTEIN,URINE NEGATIVE (NEGATIVE); URINE SPECIFIC GRAVITY 1.024; UROBILINOGEN,URINE NEGATIVE mg/dL (<2.0)
[2020-03-17 14:39] LABS: ALBUMIN 4.4 g/dL (3.5-5.0); ALKALINE PHOSPHATASE 44 U/L (38-126); ANION GAP 6 (5-19); ASPARTATE AMINO TRANSFERASE 25 U/L (14-36); BILIRUBIN,TOTAL 0.3 mg/dL (0.2-1.3); BLOOD UREA NITROGEN 10 mg/dL (7-20); CALCIUM 9.6 mg/dL (8.4-10.2); CARBON DIOXIDE 25 mmol/L (22-30); CHLORIDE 103 mmol/L (98-107); GLUCOSE 70 mg/dL (75-110); TOTAL PROTEIN 7.6 g/dL (6.3-8.2)
--- NOTE | 2020-03-17 16:02 | RADIOLOGY REPORT (SQ) ---
EXAM DESCRIPTION: U/S [id number] TRNABD 1GES W/ODOP IMAGES COMPLETED DATE/TIME: 03/17/2020 2:22 pm REASON FOR STUDY: vaginal bleeding COMPARISON: None. TECHNIQUE: Transabdominal static and realtime grayscale images acquired of the pelvis. Additional se lected spectral and color Doppler images recorded. All images stored on PACs. bHCG: Not available CLINICAL DATES: LMP 01/08/2020 for a clinical gestational age of 9 weeks 6 days LIMITATIONS: None. FINDINGS: FETUS: Single Living intrauterine . ULTRASOUND EGA: 10 weeks 3 days ULTRASOUND SAPNA: 10/10/2020 EFW: Not applicable less than 20 weeks. CRL: 3.58 cm FHR: 171 beats per minute. SURVEY: No visualized anomalies. AMNIOTIC FLUID: Adequate amount. PLACENTA: Not yet developed due to early gestation. SUBCHORIONIC BLEED: No. SIZE OF BLEED: Not applicable. UTERUS: No masses. No anomalies. CERVICAL LENGTH: 3.2 cm Closed. RIGHT ADNEXA: Not visualized No adnexal free fluid. No adnexal masses. LEFT ADNEXA: Not visualized No adnexal free fluid. No adnexal masses. FREE FLUID: None. OTHER: No other significant finding. IMPRESSION: LIVING INTRAUTERINE . EGA 10 weeks 3 days Trimester of : First trimester - 0 to 13 weeks. TECHNICAL DOCUMENTATION: JOB ID: [id number] [employer]- All Rights Reserved rev Reading location - IP/workstation name: [email or web address]
--- NOTE | 2020-03-17 20:36 | ER Document Report ---
Entered by REGINA KNIGHT SCRIBE 03/17/202026 Acting as scribe for:DOROTHY LIZ DO ED General - General Chief Complaint: Vag Bleeding, +preg <12wks Stated Complaint: VAGINAL SPOTTING Time Seen by Provider: 03/17/20 13:35 Primary Care Provider: NICA HEAD MD [ACTIVE STAFF] - 03/18/20 Mode of Arrival: Ambulatory Information source: Patient Notes: This 19 year old female patient presents to the emergency department today with complaints of intermittent spotting for the past few weeks. Patient states she is G1, and around 10 weeks. Patient states she is on a vitamin and does not have a regular OB physician. Denies any nausea, vomiting, or pain. Patient states she is not on any medications for chronic medical conditions. TRAVEL OUTSIDE OF THE [place] IN LAST 30 DAYS: No - Related Data Allergies/Adverse Reactions: No Known Allergies Allergy (Unverified 07/10/19 23:49) Past Medical History - General Information source: Patient - Social History Smoking Status: Never Smoker Cigarette use (# per day): No Frequency of alcohol use: None Drug Abuse: None Family History: None, Reviewed & Not Pertinent Pulmonary Medical History: Reports: Hx Asthma GI Medical History: Reports: Hx Gastroesophageal Reflux Disease Psychiatric Medical History: Reports: Hx Depression Past Surgical History: Reports: Hx Tonsillectomy Review of Systems - Review of Systems Constitutional: No symptoms reported EENT: No symptoms reported Cardiovascular: No symptoms reported Respiratory: No symptoms reported Gastrointestinal: See HPI. denies: Abdominal pain, Nausea, Vomiting Genitourinary: No symptoms reported Female Genitourinary: See HPI, , Other - intermittent spotting Musculoskeletal: No symptoms reported Skin: No symptoms reported Hematologic/Lymphatic: No symptoms reported Neurological/Psychological: No symptoms reported -: Yes All other systems reviewed and negative Physical Exam - Vital signs Vitals: Temp Pulse Resp BP Pulse Ox 98.1 F 89 16 113/52 L 100 03/17/20 12:41 03/17/20 12:41 03/17/20 12:41 03/17/20 12:41 03/17/20 12:41 - General General appearance: Appears well, Alert - HEENT Head: Normocephalic, Atraumatic Eyes: Normal Pupils: PERRL - Respiratory Respiratory status: No respiratory distress Chest status: Nontender Breath sounds: Normal Chest palpation: Normal - Cardiovascular Rhythm: Regular Heart sounds: Normal auscultation Murmur: No - Abdominal Inspection: Gravid female Distension: No distension Bowel sounds: Normal Tenderness: Nontender - Extremities General upper extremity: Normal inspection, Normal ROM General lower extremity: Normal inspection, Normal ROM. No: Edema - Neurological Neuro grossly intact: Yes Cognition: Normal Orientation: AAOx4 [place] Coma Scale Eye Opening: Spontaneous [place] Coma Scale Verbal: Oriented [place] Coma Scale Motor: Obeys Commands [place] Coma Scale Total: 15 Speech: Normal Motor strength normal: LUE, RUE, LLE, RLE Sensory: Normal - Psychological Associated symptoms: Normal affect, Normal mood - Skin Skin Temperature: Warm Skin Moisture: Dry Skin Color: Normal Course - Re-evaluation Re-evalutation: 03/17/20 20:30 MDM 19 year old with spotting. [place] and is at 10 and a 1/2 weeks gestation. No abd pain. Discussed reassuring sono with her and she will follow up. Discussed threatened ab also. She expressed understanding. Spotting over the last week but no cramps pain or vaginal bleeding. For this reason no rhogam at this time. If starts bleeding will need rhogam. - Vital Signs Vital signs: Temp Pulse Resp BP Pulse Ox 98.9 F 75 15 104/48 L 100 03/17/20 21:30 03/17/20 21:30 03/17/20 21:30 03/17/20 21:30 03/17/20 21:30 - Laboratory Results Result Diagrams: 03/17/20 13:55 03/17/20 13:55 Laboratory Results Interpreted: 03/17/20 03/17/20 13:55 13:55 Hct 34.5 L Sodium 134.3 L Creatinine 0.46 L Glucose 70 L Beta HCG, Quant 519337.00 H Critical Laboratory Results Reviewed: No Critical Results - Radiology Results Critical Radiology Results Reviewed: No Critical Results Discharge - Discharge Clinical Impression: Threatened Condition: Stable Disposition: HOME, SELF-CARE Instructions: Acetaminophen, ([facility]), Threatened Miscarriage ([facility]) Additional Instructions: Pelvic rest as discussed - nothing in vagina until follow up and told ok by ob doctor. Return here for vaginal bleeding, abdominal pain, other problems or concerns. Continue to take the vitamins. Referrals: NICA HEAD MD [ACTIVE STAFF] - 12/28/20 I personally performed the services described in the documentation, reviewed and edited the documentation which was dictated to the scribe in my presence, and it accurately records my words and actions.
[2020-03-17 21:30] VITALS: BP 104/48
== END 2020-03-17 21:31 | disposition home or self-care (01) ==
LOC: ER 12:39
DX: O20.0 Threatened abortion (principal); Z3A.10 10 weeks gestation of pregnancy; O99.511 Diseases of the respiratory system complicating pregnancy, first trimester; J45.909 Unspecified asthma, uncomplicated
CPT/HCPCS: 36415; 76801; 80053; 81001; 84702; 85025; 86900; 86901; 99284